=== PATIENT | female | born 1945 | race Caucasian/White ===

== ENCOUNTER → 2021-08-28 | Outpatient (CLI) | payer MEDICARE | END | disposition home or self-care (01) | LOC: LAB SHORT 14:52 | DX: D22.5 Melanocytic nevi of trunk (principal); L82.1 Other seborrheic keratosis | CPT/HCPCS: 88305 ==

== ENCOUNTER 2023-09-15 08:38 | Day surgery (SDC) | payer OTHER ==
[~2023-09-15] VITALS: Ht 160 cm; Wt 91.4 kg
[~2023-09-15 08:38] MED LIST: ALBU90OI INH; BENADRYL25 M1 PO; Balanced Salt Epinephrine Irrigation Solution 500 mL IR SCH; LISINOPRIL-HCT1 EAC1 PO; Lidocaine HCl/Pf 1% 5 ML VIAL XX SCH; METF500 PO; Moxifloxacin HCL 0.5 MG/0.1 ML 0.4MLSYR RIGHTEYE SCH; NASACORT10.8 ML; NS 500 ML IV ONE; PARO20 PO; PHENYLEPHRINE\\TROPICAMIDE\\TETRACAINE OPHTHALMIC DILATING SOLN RIGHTEYE PRN; Povidone-Iodine 450 DROP/30 ML Solution ONE; Povidone-Iodine 450 DROP/30 ML Solution RIGHTEYE SCH; Prinivil10 MG PO
[2023-09-15] MEDS ORDERED: Lisinopril-Hct1 EAC4 PO (09:12)
[2023-09-15] MEDS ORDERED: NS 500 ML IV ONE ×2 (09:20)
--- NOTE | 2023-09-15 09:21 | NUR ---
09/15/23 0921 Poonam Person CALL LIGHT WITHIN REACH. TETRACAINE IN RIGHT EYE AT 0918 AND PLEDGETT IN AT 0920
[2023-09-15] MEDS ORDERED: Midazolam HCl 1MG / ML 2ML Vial ONE (10:01)
[2023-09-15] MEDS ORDERED: Tetracaine HCl 0.5% Opth Soln 15 ml XX ONE (10:01)
[2023-09-15 10:42] VITALS: BP 115/40
--- NOTE | 2023-09-15 10:49 | NUR ---
09/15/23 1049 STEVEN PANG PT BP WAS 111/49 POST OP BACK TO BASELINE; TOLD PT TO KEEP AN EYE ON HER BP AT HOME AND BE CAUTIOUS WHEN GETTING UP, CHANGING POSITIONS. TOLD PT THAT SHE IS AT RISK OF FALLING AND TO USE CANE OR HAVE SOMEONE CLOSE BY TODAY. PT STATES THAT SHE FEELS FINE AND READY TO DC.
== END 2023-09-15 10:37 | disposition home or self-care (01) ==
LOC: ORSCSDS 08:38
PROVIDERS: Student in an Organized Health Care Education/Training Program
PROC: 08RJ3JZ Replacement of Right Lens with Synthetic Substitute, Percutaneous Approach (ICD-10-PCS; principal; 2023-09-15 10:00)
DX: E11.36 Type 2 diabetes mellitus with diabetic cataract (principal); H25.13 Age-related nuclear cataract, bilateral; J45.909 Unspecified asthma, uncomplicated; I10 Essential (primary) hypertension; F41.9 Anxiety disorder, unspecified; Z79.84 Long term (current) use of oral hypoglycemic drugs; Z79.899 Other long term (current) drug therapy
CPT/HCPCS: 82947; J2250; J7040; V2632

== ENCOUNTER 2025-02-20 09:30 | Day surgery (SDC) | payer OTHER ==
[~2025-02-20] VITALS: Ht 160 cm; Wt 90.0 kg
[~2025-02-20 09:30] MED LIST changes: -Balanced Salt Epinephrine Irrigation Solution 500 mL IR SCH; -Lidocaine HCl/Pf 1% 5 ML VIAL XX SCH; +Lisinopril-Hct1 EAC4 PO; -Moxifloxacin HCL 0.5 MG/0.1 ML 0.4MLSYR RIGHTEYE SCH; -PHENYLEPHRINE\\TROPICAMIDE\\TETRACAINE OPHTHALMIC DILATING SOLN RIGHTEYE PRN; -Povidone-Iodine 450 DROP/30 ML Solution ONE; -Povidone-Iodine 450 DROP/30 ML Solution RIGHTEYE SCH
[2025-02-20] MEDS ORDERED: CeFAZolin Sodium 2,000 MG VIAL ONE (10:21)
[2025-02-20] MEDS ORDERED: HYDCHL25 PO (10:28)
[2025-02-20] MEDS ORDERED: LISI20 PO (10:28)
[2025-02-20] MEDS ORDERED: ACET500 PO (10:30)
[2025-02-20] MEDS ORDERED: IBUPROFEN IB200 MG PO (10:30)
[2025-02-20] MEDS ORDERED: NS 500 ML IV ONE (10:40)
[2025-02-20] MEDS ORDERED: Lidocaine 1%-Epineph 1:100000 20 ML MDV INJ ONE (11:32)
[2025-02-20 12:02] VITALS: BP 124/54
== END 2025-02-20 12:13 | disposition home or self-care (01) ==
LOC: ORSCSDS 09:30
PROVIDERS: Orthopaedic Surgery
PROC: 0LB70ZZ Excision of Right Hand Tendon, Open Approach (ICD-10-PCS; principal; 2025-02-20 11:00)
PROC: 0LN70ZZ Release Right Hand Tendon, Open Approach (ICD-10-PCS; 2025-02-20 11:00)
DX: M65.311 Trigger thumb, right thumb (principal); R22.31 Localized swelling, mass and lump, right upper limb; M79.641 Pain in right hand; E11.9 Type 2 diabetes mellitus without complications; I10 Essential (primary) hypertension; K21.9 Gastro-esophageal reflux disease without esophagitis; J45.909 Unspecified asthma, uncomplicated; Z87.891 Personal history of nicotine dependence; Z79.84 Long term (current) use of oral hypoglycemic drugs; Z79.899 Other long term (current) drug therapy
CPT/HCPCS: 82947; 88304; J0690; J2704; J7040